=== PATIENT | female | born 2000 | race Caucasian/White ===

== ENCOUNTER → 2023-09-12 | Outpatient (CLI) | payer SELFPAY ==
[2023-09-12 15:50] LABS: Erythrocyte Sedimentation Rate 1 mm/hr (0-30)
[2023-09-12 16:09] LABS: CRP < 2.90 mg/L (0.0-3.0); Ferritin 27 ng/mL (8-252)
[2023-09-16 12:09] LABS: Testosterone, % Free 2.14 % (0.50-2.80); Testosterone, Free 0.34 ng/dL (0.10-0.85); Testosterone, Total 16 ng/dL (13-71)
== END | disposition home or self-care (01) ==
LOC: BIMLAB 12:04
PROVIDERS: Visit Provider Nurse Practitioner Family
DX: N94.6 Dysmenorrhea, unspecified (principal); R53.82 Chronic fatigue, unspecified; N94.10 Unspecified dyspareunia; R68.82 Decreased libido; L65.9 Nonscarring hair loss, unspecified
CPT/HCPCS: 36415; 82728; 84402; 84403; 85652; 86140

== ENCOUNTER → 2024-04-10 | Outpatient (REF) | payer SELFPAY ==
[2024-04-10 16:01] LABS: Vitamin B12 838 pg/mL (211-911); Vitamin D,25 Hydroxy 45.1 ng/mL
[2024-04-10 16:17] LABS: Ferritin 28 ng/mL (8-252)
== END | disposition home or self-care (01) ==
LOC: BIMLAB 11:50
PROVIDERS: Referring Provider Nurse Practitioner Family; Visit Provider Nurse Practitioner Family
DX: N94.6 Dysmenorrhea, unspecified (principal); R53.82 Chronic fatigue, unspecified; N94.10 Unspecified dyspareunia; R68.82 Decreased libido; L65.9 Nonscarring hair loss, unspecified; Z77.120 Contact with and (suspected) exposure to mold (toxic)
CPT/HCPCS: 36415; 82306; 82607; 82728; 82746; 84403